=== PATIENT | female | born 1965 | race Caucasian/White ===

== ENCOUNTER 2016-08-14 12:19 | Observation (INO) | payer OTHER ==
[~2016-08-14] VITALS: Ht 170.2 cm; Wt 98.2 kg
[~2016-08-14 12:19] MED LIST: ACTOS45 MG PO; AMARYL4 MG PO; AMBIEN10 MG PO; AMBIEN5 M1 PO; ATIVAN0.5 MG PO; BENTYL20 MG PO; FLEXERIL10 MG PO; GLUCOPHAGE1000 MG PO; GLYNASE3 MG PO; HYDROCHLOROTHIA25 MG PO; LANTUS (UNITS)1 UNIT SC; LANTUS 3 M100 UNITS1 SC; LEVOTHROID112 MCG PO; LORTAB 5-325 M1 EACH PO; LYRICA100 MG PO; METFORMIN HCL500 MG PO; MOTRIN400 MG PO; MOTRIN600 MG PO; NOVOLOG 10100 UNITS/ SC; NOVOLOG MI100 UNIT/2 SQ; PAXIL10 MG PO; PERCOCET 5/31 TABLET PO; PREMPHASE 0.621 EAC1 PO; SIMVASTATIN40 MG PO; TOPAMAX50 MG PO; TOPIRAMATE25 MG PO; ZESTRIL,PRINIV2.5 MG PO; ZOCOR40 MG PO; [UNRECOGNIZED DRUG - CODE]
[2016-08-14 12:39] LABS: POINT-OF-CARE METER ID UU13113778
[2016-08-14 13:28] LABS: HEMATOCRIT 38.1 % (36.0-46.0); MCHC 32.5 G/DL (30.0-36.0); MCV 95.3 FL (83-99); MEAN PLAT.VOLUME 9.6 uM^3 (9.5-12.4); PLATELET COUNT 273 K/uL (156-360); RBC DIS.WIDTH-CV 12.9 % (11.8-14.6); RBC DIS.WIDTH-SD 43.8 % (39-53); WHITE BLOOD COUNT 6.7 K/uL (4.1-10.2)
[2016-08-14 13:29] LABS: CARBON DIOXIDE (BICARBONATE) 25.1 MEQ/L (20-31)
[2016-08-14 13:37] LABS: CHLORIDE 101 mEq/L (99-109); POTASSIUM 4.8 mEq/L (3.7-5.4); SODIUM 136 mEq/L (136-147)
[2016-08-14 13:40] LABS: ANION GAP 13 MEQ/L (2-14)
[2016-08-14 13:41] LABS: ADD MIUA? NO; BILIRUBIN NEGATIVE; BLOOD NEGATIVE; COLOR YELLOW ((YELLOW)); GLUCOSE (STRIP) >=500; KETONES 80; LEUKOCYTES NEGATIVE; NITRITE NEGATIVE; PROTEIN (STRIP) NEGATIVE; SPECIFIC GRAVITY 1.033 (1.000-1.030); UCUL ADDED? NO; UROBILINOGEN 0.2 MG/DL (0.2-1.0)
[2016-08-14 13:43] LABS: GFR ESTIMATE (CALCULATED) 42 mL/min/; UREA NITROGEN (BUN) 15 mg/dL (9-23)
[2016-08-14 13:48] LABS: GLUCOSE 598 mg/dL (70-99)
[2016-08-14] MEDS ORDERED: ZESTRIL2.5 MG PO (14:46)
[2016-08-14] MEDS ORDERED: ADVIL200 MG PO (14:47)
[2016-08-14] MEDS ORDERED: EXCEDRIN MIGRA1 EAC1 PO (14:47)
[2016-08-14] MEDS ORDERED: ALEVE220 MG PO (14:48)
[2016-08-14] MEDS ORDERED: TOPAMAX50 MG PO (14:51)
[2016-08-14] MEDS ORDERED: PREMPHASE PO (14:54)
[2016-08-14] MEDS ORDERED: LEVO-T137 MCG PO (14:55)
[2016-08-14] MEDS ORDERED: SYSTANE BALANCE10 ML BOTH EYES (14:55)
[2016-08-14] MEDS ORDERED: VAPOR INHALER50 MG BOTH NARES (14:56)
[2016-08-14] MEDS ORDERED: DAYQUIL PO (14:58)
[2016-08-14 16:07] LABS: CREATININE 0.7 mg/dL (0.6-1.3); POTASSIUM 4.7 mEq/L (3.7-5.4)
[2016-08-14 17:11] LABS: TROP-I INTERPRETATION NEGATIVE; TROPONIN-I < 0.01 ng/mL (0.0-0.30)
[2016-08-14 17:15] LABS: TROP-I INTERPRETATION NEGATIVE; TROPONIN-I < 0.01 ng/mL (0.0-0.30)
[2016-08-14 17:18] LABS: Estimated Average Glucose 255 mg/dL (70-123); HEMOGLOBIN A1c (GLYCOHEMOGLOB) 10.5 % HGB (Below 5.7)
[2016-08-14 17:45] VITALS: BP 116/70
[2016-08-14 18:01] LABS: POINT-OF-CARE METER ID UU13113831
[2016-08-14 18:29] LABS: INFLUENZA A VIRAL ANTIGEN NEGATIVE; INFLUENZA B VIRAL ANTIGEN NEGATIVE
[2016-08-14 19:39] VITALS: BP 141/63
[2016-08-14 20:43] LABS: POINT-OF-CARE METER ID UU14162513
[2016-08-15] VITALS: BP 113/74
[2016-08-15 02:59] LABS: POINT-OF-CARE METER ID UU13113700
[2016-08-15 04:00] VITALS: BP 102/55
[2016-08-15 06:46] LABS: ANION GAP 8 MEQ/L (2-14); CHLORIDE 109 MEQ/L (99-109); SAMPLE HEMOLYSIS CHECK 0; SAMPLE ICTERIC CHECK 0; SAMPLE LIPEMIA CHECK 0; SODIUM 142 MEQ/L (136-147); UREA NITROGEN (BUN) 13 mg/dL (9-23)
[2016-08-15 06:47] LABS: GFR ESTIMATE (CALCULATED) > 59 mL/min/; GLUCOSE 95 mg/dL (70-99); POTASSIUM 3.8 MEQ/L (3.7-5.4)
[2016-08-15 06:49] LABS: POINT-OF-CARE METER ID UU13113700
[2016-08-15 08:24] VITALS: BP 107/63
[2016-08-15 10:30] LABS: POINT-OF-CARE METER ID UU13113700
[2016-08-15] MEDS ORDERED: LEVOFLOXACIN500 MG PO (11:19)
[2016-08-15] MEDS ORDERED: FLONASE16 G1 BOTH NARES (11:19)
[2016-08-15] MEDS ORDERED: MUCINEX600 MG PO (11:19)
[2016-08-15 11:49] VITALS: BP 110/57
== END 2016-08-15 14:35 | disposition home or self-care (01) ==
LOC: EME 12:19 → 5WEST 15:51 → EDOF 15:51 → 5WEST 17:29
PROVIDERS: Emergency Medicine; Hospitalist; Internal Medicine
DX: E11.65 Type 2 diabetes mellitus with hyperglycemia (principal); N17.9 Acute kidney failure, unspecified; J20.9 Acute bronchitis, unspecified; Z87.891 Personal history of nicotine dependence; R11.0 Nausea; R19.7 Diarrhea, unspecified
CPT/HCPCS: 71020; 80047; 80048; 81003; 82010; 82803; 82948; 83036; 83605; 84484; 85027; 87502; 87651 90; 99281; 99284; G0378; J1815; J7030

== ENCOUNTER 2016-09-30 12:37 | Emergency (ER) | payer OTHER ==
[~2016-09-30] VITALS: Ht 170.2 cm; Wt 103.6 kg
[~2016-09-30 12:37] MED LIST changes: +ADVIL200 MG PO; +ALEVE220 MG PO; +DAYQUIL PO; +EXCEDRIN MIGRA1 EAC1 PO; +FLONASE16 G1 BOTH NARES; +LEVO-T137 MCG PO; +LEVOFLOXACIN500 MG PO; +MUCINEX600 MG PO; +PREMPHASE PO; +SYSTANE BALANCE10 ML BOTH EYES; +VAPOR INHALER50 MG BOTH NARES; +ZESTRIL2.5 MG PO
[2016-09-30 13:02] LABS: POINT-OF-CARE METER ID UU13113778
[2016-09-30 13:38] LABS: MCH 30.7 PG (29.0-34.0); MCHC 31.8 G/DL (30.0-36.0); MCV 96.4 FL (83-99); MEAN PLAT.VOLUME 9.2 uM^3 (9.5-12.4); PLATELET COUNT 294 K/uL (156-360); RBC DIS.WIDTH-CV 13.3 % (11.8-14.6); RBC DIS.WIDTH-SD 48.1 % (39-53); RED BLOOD COUNT 3.94 M/uL (3.80-5.20); WHITE BLOOD COUNT 9.9 K/uL (4.1-10.2)
[2016-09-30 13:46] LABS: CHLORIDE 106 mEq/L (99-109); SODIUM 138 mEq/L (136-147)
[2016-09-30 13:48] LABS: GLUCOSE 323 mg/dL (70-99)
[2016-09-30 13:49] LABS: ANION GAP 11 MEQ/L (2-14)
[2016-09-30 13:52] LABS: GFR ESTIMATE (CALCULATED) > 59 mL/min/; UREA NITROGEN (BUN) 17 mg/dL (9-23)
[2016-09-30 14:19] VITALS: BP 132/114
== END 2016-09-30 14:20 | disposition home or self-care (01) ==
LOC: EME 12:37
PROVIDERS: Emergency Medicine
DX: E11.649 Type 2 diabetes mellitus with hypoglycemia without coma (principal); Z79.4 Long term (current) use of insulin; E78.5 Hyperlipidemia, unspecified; E03.9 Hypothyroidism, unspecified; Z87.891 Personal history of nicotine dependence
CPT/HCPCS: 80048; 82948; 85027; 99281; 99284

== ENCOUNTER 2017-06-04 18:06 | Emergency (ER) | payer OTHER ==
[~2017-06-04] VITALS: Ht 170.2 cm; Wt 100.6 kg
[2017-06-04 18:43] VITALS: BP 114/101
== END 2017-06-04 20:30 | disposition left against medical advice (07) ==
LOC: EME 18:06
DX: M25.512 Pain in left shoulder (principal); Z53.21 Procedure and treatment not carried out due to patient leaving prior to being seen by health care provider

== ENCOUNTER 2017-10-07 08:08 | Emergency (ER) | payer OTHER ==
[~2017-10-07] VITALS: Ht 170.2 cm; Wt 96.9 kg
[2017-10-07 08:55] LABS: BASOPHIL (%) 0.4 % (0-1); EOSINOPHIL (%) 0.3 % (0-5); HEMATOCRIT 37.6 % (36.0-46.0); HEMOGLOBIN 12.3 G/DL (11.9-15.5); IMMATURE GRANULOCYTE (%) 0.3 % (0.0-0.7); LYMPHOCYTE (%) 17.4 % (15-42); LYMPHOCYTE COUNT 1.6 K/uL (1.0-2.8); MCH 31.9 PG (29.0-34.0); MCHC 32.7 G/DL (30.0-36.0); MCV 97.4 FL (83-99); MONOCYTE (%) 12.7 % (3-12); MONOCYTE COUNT 1.1 K/uL (0-0.8); NEUTROPHIL (%) 68.9 % (45-76); NEUTROPHIL COUNT 6.2 K/uL (1.8-6.4); PLATELET COUNT 267 K/uL (156-360); RBC DIS.WIDTH-CV 13.6 % (11.8-14.6); RBC DIS.WIDTH-SD 49.1 % (39-53); RED BLOOD COUNT 3.86 M/uL (3.80-5.20)
[2017-10-07 09:14] LABS: APPEARANCE CLOUDY ((CLEAR)); BILIRUBIN NEGATIVE; BLOOD NEGATIVE; COLOR AMBER ((YELLOW)); GLUCOSE (STRIP) >=500; KETONES 20; LEUKOCYTES NEGATIVE; NITRITE NEGATIVE; PROTEIN (STRIP) 30; SPECIFIC GRAVITY 1.031 (1.000-1.030)
[2017-10-07 09:22] LABS: BACTERIA RARE /HPF; EPITHELIAL CELLS 2+ /HPF; MUCUS 1+ /LPF; RED BLOOD CELLS 0-5 /HPF (0-5); UCUL ADDED? NO; WHITE BLOOD CELLS 0-5 /HPF (0-5)
[2017-10-07 09:25] LABS: ALBUMIN 3.7 G/DL (3.2-4.8); ALKALINE PHOSPHATASE 69 IU/L (3-129); ALT (GPT) 14 IU/L (3-49); AST (GOT) 16 IU/L (2-34); CHLORIDE 104 MEQ/L (99-109); CREATININE 0.8 MG/DL (0.6-1.3); GFR ESTIMATE (CALCULATED) > 59 mL/min/; GLUCOSE 371 mg/dL (70-99); MAGNESIUM 1.8 mg/dl (1.3-2.7); POTASSIUM 5.1 MEQ/L (3.7-5.4); SODIUM 134 MEQ/L (136-147); TOTAL BILIRUBIN 0.2 MG/DL (0.0-1.0); TOTAL PROTEIN 6.8 G/DL (6.4-8.3); UREA NITROGEN (BUN) 15 mg/dL (9-23)
[2017-10-07] MEDS ORDERED: ZOFRAN ODT4 MG PO (10:31)
[2017-10-07 10:54] VITALS: BP 98/60
== END 2017-10-07 11:06 | disposition home or self-care (01) ==
LOC: EME 08:08
PROVIDERS: Emergency Medicine
DX: E11.65 Type 2 diabetes mellitus with hyperglycemia (principal); R19.7 Diarrhea, unspecified; M79.602 Pain in left arm; Z79.4 Long term (current) use of insulin; E03.9 Hypothyroidism, unspecified; E78.5 Hyperlipidemia, unspecified; F17.200 Nicotine dependence, unspecified, uncomplicated; F32.9 Major depressive disorder, single episode, unspecified; F41.9 Anxiety disorder, unspecified; Z88.1 Allergy status to other antibiotic agents; Z86.19 Personal history of other infectious and parasitic diseases
CPT/HCPCS: 71046; 73060; 80053; 81003; 83735; 85025; 99281; 99284; J7040